=== PATIENT | female | born 1965 | race African-American/Black ===

== ENCOUNTER 2020-09-22 09:46 | Observation (INO) | payer SELFPAY ==
[2020-09-22] VITALS (35 sets, daily range): BP systolic 110–140; BP diastolic 60–96; PULSE 38–79; RESP 9–33; TEMP 36.2–37.2; O2SAT 95–99; BMI 18.0
--- NOTE | ~2020-09-22 | XR_ITS ---
EXAMINATION: XR chest 2V DATE: 09/22/2020 10:52 INDICATION: Central chest pain. TECHNIQUE: Frontal and lateral views of the chest were obtained. COMPARISON: None. FINDINGS: The chest demonstrates clear lungs without pneumonia, pleural effusion, or pneumothorax. Th e heart size is normal. IMPRESSION: 1. No acute cardiopulmonary disease. Reviewed, dictated and finalized at location A. T CLERK
--- NOTE | 2020-09-22 09:49 | ECG_ITS ---
Measurements Intervals [place] Rate: 47 P: 81 MS: 161 QRS: -7 QRSD: 109 T: 94 QT: 498 QTc: 441 Interpretive Statements SINUS BRADYCARDIA LIMB LEAD REVERSAL POSSIBLE LEFT ATRIAL ENLARGEMENT INCOMPLETE RIGHT BUNDLE BRANCH BLOCK ST ELEVATION IN INFERIOR LEADS- PROBABLY EARLY REPOLARIZATION ABNORMAL ECG Electronically Signed On 09-22-2020 11:50:08 SIGN WRITER LETTERER OR PAINTER by Junior Wheatley D.O.
--- NOTE | 2020-09-22 09:57 | PC.NURSE ---
Patient heart rate dropped to 38 as patient started to snore. Patient verbally aroused and asked if she felt anything. patient states that she felt really sleepy and dizzy . EDP notified and VORB obtained for 0.5mg Atropine given IVP by this RN. HR after intervention is 73 sinus/.
[2020-09-22] MEDS: ATROPINE SULFATE 1 MG/10 ML SYRINGE 0.5 MG IV PUSH (10:03)
--- NOTE | 2020-09-22 10:09 | ED.CHESTPAIN ---
HPI - Chest Pain General Chief Complaint: Chest Pain Stated Complaint: CP Time Seen by Provider: 09/22/20 09:56 Source: patient and EMS Mode of arrival: EMS Limitations: no limitations History of Present Illness HPI narrative: 55 years old -Togolese female brought to the emergency room by ambulance because chest pain started gradually at work this morning. 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 Started 8 months ago. Patient went to work 7 AM and was doing okay at 8 AM started having pain across the chest mainly right side, squeezing, 8 out of 10 worse probably with movement and breathing. Currently 4 out of 10. Patient denies having similar symptoms. Patient does not take medications, she smokes and drinks and denied any drug abuse. Patient denies any fever, chills, nausea, vomiting, shortness of breath, respiratory symptoms. Patient monitor showed bradycardia during transportation, down to 40s. On arrival to the ED EKG showing sinus bradycardia at 47 bpm. Patient denies any lightheadedness, or dizziness. Or any history of bradycardia before Related Data Home Medications Medication Instructions Recorded Confirmed No Home Medications 09/22/20 09/22/20 Allergies Allergy/AdvReac Type Severity Reaction Status Date / Time No Known Allergies Allergy Verified 09/22/20 09:59 Review of Systems Review of Systems: Narrative: CONSTITUTIONAL: Denies fever, chills, or sweats. EYES: Denies visual changes, redness, or discharge. ENT: Denies rhinorrhea, congestion, sore throat, or otalgia. CARDIOVASCULAR: Chest pain RESPIRATORY: Denies cough or dyspnea. GASTROINTESTINAL: Denies abdominal pain, nausea, vomiting, or diarrhea. GENITOURINARY: Denies dysuria or hematuria. SKIN: Denies rash or itching. MUSCULOSKELETAL: Denies back pain, joint pain, or myalgia. NEUROLOGIC: Denies headache, numbness, or weakness. PSYCHIATRIC: Denies anxiety or depression. [facility] Social History Social History (Updated 09/22/20 @ 10:16 by Migel Felix MD) Social History: Patient smokes, drinks, Second hand tobacco smoke exposure: No Gender identity (if verbalized by the patient): Female Exam Narrative: Exam Narrative: General appearance: Well-developed, malnourished. Patient have intermittent sleeping spells while talking Skin: Normal color Head: Normocephalic, nontraumatic Eyes: Clear conjunctiva ENT: Oropharynx normal, ears normal, nose normal Neck: Supple, nontender Chest and respiratory: Airway patent, no respiratory distress, no accessory muscle use Heart: Bradycardia Abdomen: Soft, nontender, no organomegaly, quiet bowel sounds Vascular: Normal peripheral pulses, normal capillary refill. 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 is normal as tested, no gross motor deficit Course Course Emergency Course: Stable Consultations Consultation #1: DR HOLGUIN Date: 09/22/20 Time: 11:18 Vital Signs Vital signs: Vital Signs Temperature 36.6 C 09/22/20 09:49 Pulse Rate 46 L 09/22/20 09:49 Respiratory Rate 17 09/22/20 09:49 Blood Pressure 140/70 09/22/20 09:49 Pulse Oximetry 97 09/22/20 09:49 Temperature 36.6 C 09/22/20 09:49 Pulse Rate 74 09/22/20 10:14 Respiratory Rate 11 L 09/22/20 10:14 Blood Pressure 126/76 09/22/20 10:14 Pulse Oximetry 97 09/22/20 10:14 MDM - Chest Pain MDM Narrative Medical decision making narrative: Chest pain, bradycardia and intermittent spells of sleeping while talking. Labs, chest x-ray, EKG, TSH, urine drug screen, ABG on room air ordered. Further plan to follow Differential Diagnosis Differential diagno
--- NOTE | 2020-09-22 10:13 | PC.NURSE ---
Patient still falling asleep mid sentence into full snores. Patient easily arousable to verbal stimuli. When patient is asked about drowsiness, she states that she is normally not like this at all. EDP notified.
[2020-09-22 10:22] LABS: Basophils Percent Auto 0.6 % (0.2-1.2); Eosinophils Absolute Auto 0.1 K/mm3 (0-0.3); Eosinophils Percent Auto 0.8 % (0-4.4); Hematocrit 42.1 % (37.0-47.0); Hemoglobin 13.5 g/dL (12.0-15.0); Immature Granulocyte Absolute 0.02 K/mm3 (0.00-0.031); Immature Granulocyte Percent A 0.3 % (0-0.5); Lymphocytes Absolute Auto 2.18 K/mm3 (0.9-3.2); Lymphocytes Percent Auto 30.2 % (18.3-44.2); Mean Corpuscular HGB Conc 32.1 g/dl (32-36); Mean Corpuscular Hemoglobin 28.5 pg (26-34); Mean Platelet Volume 10.8 fl (7.4-10.4); Monocytes Absolute Auto 0.6 K/mm3 (0.1-0.6); Monocytes Percent Auto 8.5 % (2.6-8.5); Neutrophils Absolute Auto 4.3 K/mm3 (1.3-6.7); Neutrophils Percent Auto 59.6 % (45.5-73.1); Platelet Count Result 210 k/mm3 (150-375); Red Blood Count 4.73 M/mm3 (4.2-5.4); Red Cell Distribution Width 13.8 % (11.5-14.5); White Blood Count 7.2 K/mm3 (4.5-10.0)
[2020-09-22 10:33] LABS: Prothrombin Time 13.5 Seconds (11.1-14.7)
[2020-09-22 10:34] LABS: Partial Thromboplastin Time 28.2 SECONDS (22.3-36.8)
[2020-09-22 10:35] LABS: Anion Gap 5 mmol/L (8-16); Blood Urea Nitrogen 10 mg/dL (7-17); Carbon Dioxide 31 mmol/L (22-30); Chloride 102 mmol/L (98-107); Estimated Glomerular Filt Rate > 60; Glucose 86 mg/dL (65-105); Potassium 4.3 mmol/L (3.4-5.0); Sodium 138 mmol/L (137-145)
[2020-09-22 10:36] LABS: Alanine Aminotransferase 15 U/L (4-35); Albumin Level 3.7 g/dL (3.5-5.1); Alkaline Phosphatase 63 U/L (38-126); Aspartate Amino Transferase 29 U/L (14-36); Bilirubin,Total 0.5 mg/dL (0.2-1.3)
[2020-09-22 10:37] LABS: Add Urine Microscopic? NO; Appearance Urine Clear (Clear); Bilirubin Urine Negative (Negative); Blood Urine Negative (Negative); Color Urine Yellow (Yellow); Glucose Urine UA Negative (Negative); Ketones Urine Negative (Negative); Leukocyte Esterase Ur Negative LEU/UL (Negative); Nitrate Urine Negative (Negative); Protein Urine Negative (Negative); Specific Grav Ur 1.012 (1.001-1.035); Urobilinogen Urine Negative mg/dL (<2.0)
[2020-09-22 10:41] LABS: Alveolar/Arterial O2 Gradient 19.7 mmHg; Fractional Inspired Oxygen 21 %; Oxygen Content ABG 17.4 %vol (16.0-22.0); Oxygen Saturation ABG 93.9 % (95.0-100.0); Oxyhemoglobin 88.9 % THb (90.0-100.0); PCO2 ABG 47.8 mmHg (35.0-45.0); PO2 ABG 72.8 mmHg (80.0-100.0); PO2 FiO2 Ratio Arterial Blood 3.47 %; Total Hemoglobin 13.9 g/dL (12.0-18.0); pH ABG 7.354 (7.350-7.450)
[2020-09-22 10:42] LABS: Device ROOM AIR; Modified Allen's Test Pass; Site Drawn RIGHT RADIAL
[2020-09-22 10:47] LABS: Troponin I < 0.012 ng/mL (0.000-0.034)
[2020-09-22 10:52] LABS: Barbiturate Screen Urine Negative (Negative); Benzodiazepines Screen Urine Negative (Negative)
[2020-09-22 10:58] LABS: Amphetamine Screen Urine Negative (Negative); Cannabinoid Screen Urine Negative (Negative); Cocaine Screen Urine Positive (Negative); Methadone Screen Urine Positive (Negative); Opiate Screen Urine Negative (Negative); Phencyclidine Screen Urine Positive (Negative)
--- NOTE | 2020-09-22 12:35 | ADMGEN ---
This patient, Nga Gusman, was admitted to [facility]U OVERFLOW. Patient/family oriented to hospital policies and general routines including ID bracelet, bed and alarms, visiting hours, pain management, procedures, bathroom and other care routines, personal items, smoking policy, room service/diet, and visiting hours. DENIES CP OR SOB ON ARRIVAL. Information on how to activate the Rapid Response Team has been discussed. Patient/Family are encouraged to report perceived risks to care and to ask questions if they do not understand what they are told or what they should do.
[2020-09-22 13:33] LABS: Troponin I < 0.012 ng/mL (0.000-0.034)
--- NOTE | 2020-09-22 15:07 | PM.CNCAR ---
Assessment and Plan Assessment and plan (1) Polysubstance abuse: Code(s): F19.10 - Other psychoactive substance abuse, uncomplicated Status: Acute Assessment and Plan: Patient is a 55-year-old woman with history of polysubstance abuse (heroin currently on methadone, cocaine, alcohol, tobacco 35 pack-year), who is seen in cardiac consultation for chief complaint of chest pain. - Her urine drug screen was positive for methadone, PCP, and cocaine. - Importance of cessation of cocaine and PCP as well as alcohol and tobacco discussed with the patient. - given her self-reported weight loss in recent months and active tobacco use, she may need evaluation for malignancy as per PCP as an outpatient. Chest x-ray with no acute disease this admission. (2) Chest pain: Qualifiers: Chest pain type: unspecified Qualified Code(s): R07.9 - Chest pain, unspecified Code(s): R07.9 - Chest pain, unspecified Status: Acute Assessment and Plan: - Her chest pain is atypical, involving the right chest, as a squeezing and tightness, with onset while lifting and pulling heavy boxes. Her chest pain has largely resolved. - EKG without evidence of acute injury and initial troponin I negative for injury on 2 occasions. Repeat troponin I pending. - Obtain D-dimer to evaluate for possible pulmonary embolism given acute dyspnea associated with her presenting right-sided chest pain. - given that her urine drug screen was positive for methadone, PCP, and cocaine on 09/22/2020, anticipate outpatient stress echo 09/24/2020 at 9:30 a.m. in our [place] office to allow for time to pass post drug ingestion and to allow for resolution of possible musculoskeletal chest wall strain for maximal exercise stress echo. - patient received aspirin 325 mg and will continue aspirin 81 mg daily. - Her urine drug screen was positive for methadone, PCP, and cocaine. - Importance of cessation of cocaine and PCP as well as alcohol and tobacco discussed with the patient. (3) Bradycardia: Code(s): R00.1 - Bradycardia, unspecified Status: Acute Assessment and Plan: -Telemetry demonstrated sinus bradycardia 38-60 beats per minute, with most recent heart rate trending between 45-55 beats per minute. - Her urine drug screen was positive for methadone, PCP, and cocaine. - Continue to monitor on telemetry. - TSH normal this admission. - potassium normal and will obtain magnesium level. - Avoid rate lowering medications. - Plan to assess heart rate increase in response to exercise and for ischemia with exercise stress echo as an outpatient 09/24/2020 if patient continues to rule out for myocardial infarction and has no evidence of embolic disease. History of Present Illness History of Present Illness Consult date/time: 09/22/20 15:07 Patient is a 55-year-old woman with history of polysubstance abuse (heroin currently on methadone, cocaine, alcohol, tobacco 35 pack-year), who is seen in cardiac consultation for chief complaint of chest pain. Patient reports she was at work lifting and moving/pulling heavy boxes up to 50 lbs when she developed right-sided chest tightness with some associated dyspnea, but no nausea or diaphoresis. She denies prior chest pain. She denies any history of prior blood clots or pulmonary embolism. She denies recent exertional dyspnea. She denies dizziness, palpitations, or syncope. She denies edema, orthopnea, or paroxysmal nocturnal dyspnea. 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 She denies any history of myocardial infarction, congestive heart failure, cardiac arrhythmia, or cardiac valvular disease. She denies any prior cardiac stress testing, left heart catheterization, or prior echocardiogram. She denies any history of hypertension, diabetes mellitus, or hyperlipidemia. This admission, chest x-ray demonstrated no acute cardiopulmonary disease. Troponin I was negative for inju
--- NOTE | 2020-09-22 15:55 | PC.NURSE ---
DR. FOLEY HERE TO SEE PT. CONDITION UPDATE GIVEN. ORDERS RECEIVED.
--- NOTE | 2020-09-22 16:20 | PC.NURSE ---
DEBBIE THORNE PA HERE TO SEE PT. CONDITION UPDATE GIVEN. ORDERS RECEIVED.
--- NOTE | 2020-09-22 16:30 | PM.IMHP ---
H&P: HPI History of Present Illness Date/Time: 09/22/20 16:30 Chief complaint: Chest pain. Narrative: Nga Gusman is a 55-year-old female history of polysubstance abuse who presented to the emergency department earlier today via EMS from her place of employment with complaints of chest pain. 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 About an hour into her work day she developed a squeezing discomfort in the right anterior chest associated with mild shortness of breath but with further questioning it sounds like it was at a time when she was not actively pushing, pulling, or lifting anything heavy. She denies aggravating and alleviating symptoms to me, and notes that the discomfort past within about 10 to 20 minutes. She was brought to the emergency department and en route to the hospital she was noted to have periods of bradycardia, with telemetry showing heart rate between 38-60 beats per minute. She does not know her resting heart rate but seems asymptomatic with these lower rates. She has not had recurrence of the discomfort and has no complaints at this time. She specifically denies ever having experienced exertional chest pain or shortness of breath. No known history of cardiac disease or venous thromboembolism. No nausea, vomiting, or sweats. No pleuritic pain, orthopnea, PND, or lower extremity edema. Of note, she has a history of polysubstance abuse. 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 She also endorses recreational cocaine use, and last used 2 days ago on Monday. She has never had chest pain associated with the cocaine use. She has a history of PCP use but has not used that for many years although her drug screen is positive for such, and she is wondering if perhaps her cocaine was laced with the drug. Review of Systems Review of Systems: Narrative: Twelve systems were reviewed with pertinent positives and negatives as per HPI. No fever, chills, or sweats. No recent cold or flu symptoms. She denies cough and shortness of breath. She endorses weight loss over the past 1 year, unintentional. She does not weigh herself at home but has noticed that her clothes are fitting looser and that she can see her ribs easily. No known history of malignancy or thyroid disease. Except as documented, all other systems were reviewed and are negative. [facility] Past Medical History Medical History Nicotine use disorder Polysubstance abuse Former heroin user, now on methadone. Endorses recreational cocaine use. Experimented with PCP many years ago. Surgical History Surgical History (Updated 09/22/20 @ 20:35 by Paty Etienne PA-C) History of hysterectomy Complicated by incidental bladder injury requiring several other surgeries to correct. Family History Family History Mother Diabetes mellitus Father Hypertension Cerebrovascular accident Sibling Hypertension Social History Social History (Updated 09/22/20 @ 20:37 by Paty Etienne PA-C) Social History: The patient lives in [place], [place] with her boyfriend and son. She works for [employer] at a [employer] facility. She has smoked a pack of cigarettes per day for about 35 years. Former heroin addict, now on methadone. Previously used PCP. Recreational cocaine use. She designates her sister, Inna Lancaster, as her surrogate decision maker and she wishes to be a full code. Smoking packs per day: 1 Smoking cigarettes per day: 20.0 Years smoked: 35 Smoking pack-years: 35.00 Smoking status: Current every day smoker Tobacco type: cigarettes Second hand tobacco smoke exposure: Yes Alcohol intake: never [place]
[2020-09-22 18:28] LABS: Magnesium 2.3 mg/dL (1.6-2.3)
[2020-09-22] MEDS: ASPIRIN 81 MG CHEWABLE TABLET 324 MG PO (18:30)
--- NOTE | 2020-09-22 18:30 | PC.NURSE ---
UNABLE TO OBTAIN SPECIFIC DOSE OF DAILY METHADONE TAKEN AT HOME BY PT. PT. ATTENDS [facility] AT [address] [facility] IN [facility]. DR. RICHAR MARIN. PH. # [phone]. ATTEMPTED TO CALL CLINIC; CLOSED FOR DAY. DEBBIE FOWLER NOTIFIED OF SUCH.
[2020-09-22 18:33] LABS: D Dimer 0.27 ug/mL (<0.48)
[2020-09-22 18:41] LABS: Troponin I < 0.012 ng/mL (0.000-0.034)
[2020-09-22] MEDS: NICOTINE (*PBKC) 14 MG PATCH 1 PATCH TRANSDERM (18:45)
[2020-09-23] VITALS (9 sets, daily range): BP systolic 98–115; BP diastolic 61–77; PULSE 46–73; RESP 16; TEMP 35.9–36.6; O2SAT 98–100
[2020-09-23 06:38] LABS: Cholesterol 167 mg/dL (0-200); HDL Direct 71 mg/dL; Triglycerides 89 mg/dL (<150)
[2020-09-23 06:49] LABS: LDL Cholesterol Direct 72 mg/dL
[2020-09-23] MEDS: ASPIRIN 81 MG CHEWABLE TABLET PO (08:06)
--- NOTE | 2020-09-23 09:29 | PM.PNCARD ---
Progress Note: A&P Assessment and Plan (1) Polysubstance abuse: Code(s): F19.10 - Other psychoactive substance abuse, uncomplicated Status: Acute Assessment and Plan: Patient is a 55-year-old woman with history of polysubstance abuse (heroin currently on methadone, cocaine, alcohol, tobacco 35 pack-year), who is seen in cardiac consultation for chief complaint of chest pain. - Her urine drug screen was positive for methadone, PCP, and cocaine. - Importance of cessation of cocaine and PCP as well as alcohol and tobacco discussed with the patient. - given her self-reported weight loss in recent months and active tobacco use, she may need evaluation for malignancy as per PCP as an outpatient. Chest x-ray with no acute disease this admission. (2) Chest pain: Qualifiers: Chest pain type: unspecified Qualified Code(s): R07.9 - Chest pain, unspecified Code(s): R07.9 - Chest pain, unspecified Status: Acute Assessment and Plan: - Her chest pain is atypical, involving the right chest, as a squeezing and tightness, with onset while lifting and pulling heavy boxes. Her chest pain has largely resolved. - EKG without evidence of acute injury and initial troponin I negative for injury on 2 occasions. Repeat troponin I pending. - Obtain D-dimer to evaluate for possible pulmonary embolism given acute dyspnea associated with her presenting right-sided chest pain. - given that her urine drug screen was positive for methadone, PCP, and cocaine on 09/22/2020, anticipate outpatient stress echo 09/24/2020 at 9:30 a.m. in our [place] office to allow for time to pass post drug ingestion and to allow for resolution of possible musculoskeletal chest wall strain for maximal exercise stress echo. - patient received aspirin 325 mg and will continue aspirin 81 mg daily. - Her urine drug screen was positive for methadone, PCP, and cocaine. - Importance of cessation of cocaine and PCP as well as alcohol and tobacco discussed with the patient. (3) Bradycardia: Code(s): R00.1 - Bradycardia, unspecified Status: Acute Assessment and Plan: -Telemetry demonstrated sinus bradycardia 38-60 beats per minute, with most recent heart rate trending between 45-55 beats per minute. - Her urine drug screen was positive for methadone, PCP, and cocaine. - Continue to monitor on telemetry. - TSH normal this admission. - potassium normal and will obtain magnesium level. - Avoid rate lowering medications. - Plan to assess heart rate increase in response to exercise and for ischemia with exercise stress echo as an outpatient Subjective Date/time seen: 09/23/20 09:29 Feels much better today, no shortness breath no chest pain no dizziness or lightheadedness, on the monitor she sinus rhythm rate of 65 Exam Narrative: Exam Narrative: General appearance: Well-developed, malnourished. Skin: Normal color Head: Normocephalic, nontraumatic Eyes: Clear conjunctiva ENT: Oropharynx normal, ears normal, nose normal Neck: Supple, nontender Chest and respiratory: Airway patent, no respiratory distress, no accessory muscle use, Clear to auscultation, no wheezing or crackles. Heart: Bradycardia, regular, normal S1, S2, with 1/6 intensity systolic murmur, radial pulses 2+ bilaterally and posterior tibial pulses 2+ bilaterally. Abdomen: Soft, nontender, no organomegaly, quiet bowel sounds Vascular: Normal peripheral pulses, normal capillary refill. 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
--- NOTE | 2020-09-23 12:46 | PM.DS ---
DS: Admitting Diagnosis Admitting Diagnosis Admitting Diagnosis: Chest pain DS: Discharge Diagnosis Discharge Diagnosis (1) Chest pain: Qualifiers: Chest pain type: unspecified Qualified Code(s): R07.9 - Chest pain, unspecified Code(s): R07.9 - Chest pain, unspecified Status: Acute Assessment and Plan: See above (2) Bradycardia: Code(s): R00.1 - Bradycardia, unspecified Status: Acute Assessment and Plan: See above (3) Polysubstance abuse: Code(s): F19.10 - Other psychoactive substance abuse, uncomplicated Status: Acute Assessment and Plan: See above (4) Nicotine use disorder: Code(s): F17.200 - Nicotine dependence, unspecified, uncomplicated Status: Acute Assessment and Plan: Nicotine patch given to patient. (5) Weight loss: Code(s): R63.4 - Abnormal weight loss Status: Acute Assessment and Plan: Pt needs to follow with her PCP for weight loss Cxr looks normal here. DS: Summary Hospital Course Hospital Course: 55-year-old female history of polysubstance abuse who presented to the emergency department earlier today via EMS from her place of employment with complaints of chest pain. 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 Pt seen by cardiology, looks like pt had a atypical chest pain EKG without evidence of acute injury and initial troponin I negative for injury on 2 occasions, ddimers are negative. Urine drug screen was positive for methadone, PCP, and cocaine on 09/22/2020. So cardiology would like to do outpatient stress echo 09/24/2020 at 9:30 a.m. in our [place] office. Time Spent with Patient Time attestation: Total time spent providing and/or coordinating discharge services: 40 minutes on day of discharge Exam Narrative: Exam Narrative: General: Thin female HEENT: Normocephalic Neck: Supple. No JVD, bruits, or thyromegaly. Respiratory: Lungs are clear to auscultation bilaterally. Chest: No tenderness to palpation about the chest wall. Cardiovascular: Regular rate and rhythm with S1-S2. Gastrointestinal: Abdomen is soft, nontender, and nondistended with positive bowel sounds. Skin: Warm and dry. No rash or lesions on limited exam. Extremities: No cyanosis, clubbing, or edema. Radial and pedal pulses intact. Neurological: Alert. Cranial nerves 2-12 are grossly intact. No gross focal deficits to casual conversation. Psychiatric: Pleasant and cooperative with normal mood and affect. Judgment and insight intact. DS: Data Data Completed and Pending Labs on day of discharge: Labs from last 24 hours 09/23/20 09/22/20 09/22/20 05:56 17:30 17:30 D-Dimer 0.27 Magnesium 2.3 Troponin I Triglycerides 89 Cholesterol 167 LDL Cholesterol Direct 72 HDL Direct 71 09/22/20 09/22/20 17:30 13:00 D-Dimer Magnesium Troponin I < 0.012 < 0.012 Triglycerides Cholesterol LDL Cholesterol Direct HDL Direct Discharge Plan Discharge Attending physician on discharge: Heather Dodson Consulting providers: Getachew Pierce ; Ugo Dias Discharging Clinician: Heather Dodson Anticipated Discharge Date/Time: 09/23/20 12:44 Patient Disposition: Home, Self-Care Activity: as tolerated Diet: heart healthy Discharge Instructions: outpatient stress echo 09/24/2020 at 9:[address] Dias - [place] office Patient Instructions: Antibiotic Form, How to Stop Smoking (DC) Stand Alone Forms: General Discharge Information Follow-up/Referrals: Ugo Dias MD [Physician] - PHYSICIAN,PRESS LEADER [Primary Care Provider] - Discharge Medications: New nicotine 14 mg/24 hr Patch 24 Hour 1 patch transdermal QAM Qty: 7 RF: 0 aspirin [
--- NOTE | 2020-09-23 13:54 | PC.NURSE ---
1315-PT GIVEN d/c ORDERS AND INSTRUCTIONS. QUESTIONS ANSWERED AND VERBALIZED UNDERSTANDING. AOX4. PIV REMOVED INTACT. AMBULATED PER REQUEST TO WAITING VEHICLE. NO DISTRESS NOTED OR VERBALIZED AT TIME OF DEPARTURE.
== END 2020-09-23 13:00 | disposition home or self-care (01) ==
LOC: ANHED 11:17 → ANHCPC 13:55
PROVIDERS: Internal Medicine Cardiovascular Disease; Physician Assistant; Admitting Provider Internal Medicine; Emergency Provider Emergency Medicine; Visit Provider Family Medicine
DX: R07.89 Other chest pain (principal); F19.10 Other psychoactive substance abuse, uncomplicated; R00.1 Bradycardia, unspecified; F17.210 Nicotine dependence, cigarettes, uncomplicated; F14.90 Cocaine use, unspecified, uncomplicated; F16.99 Hallucinogen use, unspecified with unspecified hallucinogen-induced disorder; R63.4 Abnormal weight loss; Z68.1 Body mass index [BMI] 19.9 or less, adult
CPT/HCPCS: 36415; 36600; 71046; 80048; 80061; 80076; 80307; 81003; 82805; 83735; 84443; 84484; 85025; 85380; 85610; 85730; 93005; 96374; 99285; A9270; G0378; G0379; J0461

== ENCOUNTER 2021-08-05 12:00 | Emergency (ER) | payer BC, SELFPAY ==
--- NOTE | ~2021-08-05 | CT_ITS ---
EXAMINATION: CT abdomen pelvis w con DATE: 08/05/2021 13:03 INDICATION: Constipation. Nausea. Epigastric abdominal pain. TECHNIQUE: Computed tomography (CT) of the abdomen and pelvis was performed with 100 mL Omnipaque 350 intravenous contrast. Automated exposure control and iterative reconstruction technique were employe d. The dose-length product was 179.17 mGy-cm. COMPARISON: None. FINDINGS: The visualized portions of the lung bases are clear without pneumonia or pleural effusion. The heart size is normal. No pericardial effusion. The liver, gallbladder, spleen, pancreas, and adre nal glands are normal. There is cortical thinning of the kidneys. There are no dilated loops of bowel . The appendix is not visualized. There are no pathologically enlarged lymph nodes. There is no free intraperitoneal fluid. There is mild lumbar spondylosis. IMPRESSION: 1. No etiology for the patient's symptoms. Reviewed, dictated and finalized at location A.
[2021-08-05 12:00] VITALS: BP 113/64; PULSE 68; RESP 18; TEMP 37; O2SAT 100
--- NOTE | 2021-08-05 12:11 | ED.ABDPAIN ---
HPI - Abdominal Pain General Chief Complaint: Abdominal Pain Stated Complaint: constipation Time Seen by Provider: 08/05/21 12:09 Related Data Allergies Allergy/AdvReac Type Severity Reaction Status Date / Time No Known Allergies Allergy Verified 09/22/20 09:59 [facility] Past Medical History Medical History Nicotine use disorder Polysubstance abuse Former heroin user, now on methadone. Endorses recreational cocaine use. Experimented with PCP many years ago. Surgical History Surgical History (Updated 09/22/20 @ 20:35 by Paty Etienne PA-C) History of hysterectomy Complicated by incidental bladder injury requiring several other surgeries to correct. Family History Family History Mother Diabetes mellitus Father Hypertension Cerebrovascular accident Sibling Hypertension Social History Social History (Updated 09/22/20 @ 20:37 by Paty Etienne PA-C) Social History: The patient lives in [place], [place] with her boyfriend and son. She works for [employer] at a [employer]. She has smoked a pack of cigarettes per day for about 35 years. Former heroin addict, now on methadone. Previously used PCP. Recreational cocaine use. She designates her sister, Inna Lancaster, as her surrogate decision maker and she wishes to be a full code. Smoking packs per day: 1 Smoking cigarettes per day: 20.0 Years smoked: 35 Smoking pack-years: 35.00 Smoking status: Current every day smoker Tobacco type: cigarettes Second hand tobacco smoke exposure: Yes Alcohol intake: never Substance use: current Substance use type: crack/cocaine, prescription drug and other Other substance usage details: [facility]ILY [facility] Gender identity (if verbalized by the patient): Female Spiritual care concerns: No Discharge Plan Discharge Prescriptions: No Action nicotine 14 mg/24 hr Patch 24 Hour 1 patch transdermal QAM Qty: 7 RF: 0 aspirin [Children's Aspirin] 81 mg Tablet,Chewable 81 mg PO DAILY@0800 Qty: 30 RF: 0
[2021-08-05 12:17] LABS: Basophils Absolute Auto 0.1 K/mm3 (0.0-0.1); Basophils Percent Auto 0.6 % (0.2-1.2); Eosinophils Absolute Auto 0.1 K/mm3 (0-0.3); Eosinophils Percent Auto 1.2 % (0-4.4); Hematocrit 43.4 % (37.0-47.0); Hemoglobin 13.6 g/dL (12.0-15.0); Immature Granulocyte Absolute 0.02 K/mm3 (0.00-0.031); Immature Granulocyte Percent A 0.3 % (0-0.5); Lymphocytes Absolute Auto 2.19 K/mm3 (0.9-3.2); Lymphocytes Percent Auto 28.1 % (18.3-44.2); Mean Corpuscular HGB Conc 31.3 g/dl (32-36); Mean Corpuscular Hemoglobin 28.3 pg (26-34); Mean Corpuscular Volume 90.4 fl (80-100); Monocytes Absolute Auto 0.5 K/mm3 (0.1-0.6); Monocytes Percent Auto 5.9 % (2.6-8.5); Neutrophils Percent Auto 63.9 % (45.5-73.1); Platelet Count Result 386 k/mm3 (150-375); Red Cell Distribution Width 13.9 % (11.5-14.5); White Blood Count 7.8 K/mm3 (4.5-10.0)
--- NOTE | 2021-08-05 12:17 | ED.ABDPAIN ---
HPI - Abdominal Pain General Chief Complaint: Abdominal Pain Stated Complaint: constipation Time Seen by Provider: 08/05/21 12:09 Source: patient Mode of arrival: ambulatory Limitations: no limitations History of Present Illness HPI narrative: Patient is a 56-year-old female complaining of upper abdominal pain, 8 out of 10, dull, nonradiating accompanied by nausea x2 days. Patient states that she has been out of her methadone for the past week which she thinks could be causing her abdominal pain. Patient denies any chest pain, shortness of breath, vomiting, diarrhea, urinary symptoms, fever or chills. Related Data Home Medications Medication Instructions Recorded Confirmed amlodipine 08/05/21 Allergies Allergy/AdvReac Type Severity Reaction Status Date / Time No Known Allergies Allergy Verified 08/05/21 12:45 Review of Systems Review of Systems: All systems reviewed & are unremarkable except as noted in HPI and below Constitutional: Constitutional: Denies body ache(s), Denies chills, Denies excessive sweating, Denies fatigue, Denies fever(s), Denies headache(s), Denies lethargy, Denies malaise, Denies weakness and Denies weight loss Eyes: Eyes: Denies blurry vision, Denies change in vision and Denies loss of vision ENT: Denies dizziness, Denies ear discharge, Denies headache(s), Denies lip swelling, Denies epistaxis, Denies nasal congestion, Denies neck pain, Denies throat swelling and Denies tongue swelling Cardiovascular: Cardiovascular: Denies chest pain, Denies chest pain at rest, Denies chest pain with activity, Denies diaphoresis, Denies rapid heart rate, Denies edema, Denies irregular heart rhythm, Denies lightheadedness, Denies palpitations, Denies dyspnea and Denies dyspnea on exertion Respiratory: Respiratory: Denies chest congestion, Denies cough, Denies hemoptysis, Denies dyspnea and Denies dyspnea on exertion Gastrointestinal: Gastrointestinal: Denies melena, Denies hematochezia, Denies diarrhea, Denies vomiting and Denies hematemesis Musculoskeletal: Musculoskeletal: Denies abnormal gait, Denies deformity, Denies joint swelling, Denies limited range of motion, Denies neck pain and Denies numbness Neurologic: Denies Abnormal speech present, Denies abnormal gait, Denies confusion, Denies dizziness, Denies headache(s), Denies focal weakness, Denies loss of vision, Denies numbness, Denies Other visual disturbances, Denies Sensory deficit (Neuro) and Denies weakness Psychiatric: Psychiatric: Denies confusion, Denies depression, Denies auditory hallucinations, Denies homicidal ideation and Denies suicidal ideation Endocrine: Endocrine: Denies cold intolerance, Denies excessive sweating, Denies fatigue, Denies heat intolerance and Denies palpitations Hematologic/Lymphatic: Hematologic/Lymphatic: Denies easy bleeding and Denies easy bruising Allergic/Immunologic: Allergic/Immunologic: Denies lip swelling, Denies throat swelling and Denies tongue swelling PMFSH Past Medical History Medical History Nicotine use disorder Polysubstance abuse Former heroin user, now on methadone. Endorses recreational cocaine use. Experimented with PCP many years ago. Surgical History Surgical History History of hysterectomy Complicated by incidental bladder injury requiring several other surgeries to correct. Family History Family History Mother Diabetes mellitus Father Hypertension Cerebrovascular accident Sibling Hypertension Social History Social History Social History: The patient lives in [place], [place] with her boyfriend and son. She works for [employer] at a [employer] facility. She has smoked a pack of cigarettes per day for about 35 years. Former heroin addict, n
[2021-08-05 12:30] VITALS: BP 106/76; PULSE 72; RESP 16; O2SAT 100
[2021-08-05 12:33] LABS: Alanine Aminotransferase 27 U/L (4-35); Albumin Level 4.8 g/dL (3.5-5.1); Alkaline Phosphatase 84 U/L (38-126); Anion Gap 8 mmol/L (8-16); Aspartate Amino Transferase 38 U/L (14-36); Bilirubin,Total 0.2 mg/dL (0.2-1.3); Blood Urea Nitrogen 11 mg/dL (7-17); Calcium 10.3 mg/dL (8.4-10.2); Carbon Dioxide 26 mmol/L (22-30); Chloride 106 mmol/L (98-107); Estimated Glomerular Filt Rate > 60; Glucose 96 mg/dL (65-110); Lipase 44 U/L (23-300); Potassium 4.9 mmol/L (3.4-5.0); Sodium 140 mmol/L (137-145)
[2021-08-05] MEDS: LACTATED RINGERS 1,000 ML 999 ML IV CONT (12:34)
[2021-08-05] MEDS: KETOROLAC 30 MG/ML VIAL (*BKC) IV PUSH (12:35)
[2021-08-05] MEDS: ONDANSETRON INJ 4 MG/2 ML VIAL IV PUSH (12:35)
[2021-08-05 12:58] VITALS: BP 126/72; BP 127/73; PULSE 68; PULSE 76; RESP 18; O2SAT 100
[2021-08-05 13:23] LABS: Add Urine Microscopic? YES; Appearance Urine Cloudy (Clear); Bacteria Urine Trace /hpf; Bilirubin Urine Negative (Negative); Blood Urine Negative (Negative); Color Urine Yellow (Yellow); Glucose Urine UA Negative (Negative); Ketones Urine Negative (Negative); Leukocyte Esterase Ur Negative LEU/UL (Negative); Mucus Urine Rare /lpf; Nitrate Urine Negative (Negative); Protein Urine 1+ mg/dL (Negative); Specific Grav Ur 1.017 (1.001-1.035); Squamous Epithelial Cell Urine Many /hpf (Few); Urobilinogen Urine Negative mg/dL (<2.0)
[2021-08-05 15:02] VITALS: BP 118/68; PULSE 70; RESP 16; O2SAT 100
[2021-08-05 16:05] VITALS: BP 124/72; PULSE 68; RESP 18; O2SAT 100
[2021-08-05 16:13] VITALS: BP 124/72; PULSE 68; RESP 18; TEMP 37; O2SAT 100
== END 2021-08-05 16:05 | disposition home or self-care (01) ==
PROVIDERS: Emergency Provider Emergency Medicine
DX: R10.10 Upper abdominal pain, unspecified (principal); F17.210 Nicotine dependence, cigarettes, uncomplicated
CPT/HCPCS: 36415; 74177; 80053; 81001; 83690; 85025; 96361; 96374; 96375; 99284; J1885; J2405; J7120; Q9967